=== PATIENT | male | born 1950 | race Caucasian/White ===

== ENCOUNTER → 2020-03-05 | Outpatient (CLI) | payer OTHER ==
[~2020-03-05] VITALS: Ht 167.6 cm; Wt 81.6 kg
[2020-03-05 14:54] LABS: BASOPHIL % 0.4 % (0-2); PLATELET COUNT 176 x10^3mcL (130-400)
[2020-03-05 15:20] LABS: ALBUMIN 3.7 g/dL (3.4-5.0); BILIRUBIN TOTAL 0.5 mg/dL (0.20-1.00); CALCIUM 8.4 mg/dL (8.5-10.1); CARBON DIOXIDE 26.3 mmol/L (21-32); CREATININE SERUM 1.3 mg/dL (0.7-1.3); POTASSIUM SERUM 3.7 mmol/L (3.5-5.1); TOTAL PROTEIN, SERUM 6.6 g/dL (6.4-8.2)
--- NOTE | 2020-03-06 12:46 | NUR ---
EKG AND LAB TESTS SENT TO [facility] FOR REVIEW AT THIS TIME.
--- NOTE | 2020-03-09 09:30 | NUR ---
CALLED AND SPOKE TO DR ZUNIGA BEVEL OPERATOR AND INFORMED HER ABOUT ORDER OF ANESTHESIOLOGIST REGARDING A NEED FORN CARDIAC CLEARANCE D/T EKG RESULT DONE 03/05 [facility] IS ABNORMAL, ALSO INFORMED HER THAT WE WILL BE FAXING THE RESULT TO HIS OFFICE.
== END | disposition home or self-care (01) ==
LOC: LB 10:00 → EDSTATUS 03-12 10:30 → OR 03-12 10:30
PROVIDERS: ATTEND Surgery
DX: K42.9 Umbilical hernia without obstruction or gangrene (principal); Z20.828 Contact with and (suspected) exposure to other viral communicable diseases
CPT/HCPCS: U0003